=== PATIENT | female | born 1980 | race Caucasian/White ===

== ENCOUNTER → 2024-08-23 | Outpatient (REF) | payer OTHER ==
[~2024-08-23] MED LIST: GADOBENATE DIMEGLUMINE 0 ML IV ONE
== END ==
LOC: MRI 08:58
PROVIDERS: ATTEND Nurse Practitioner Family
DX: M54.16 Radiculopathy, lumbar region (principal); M51.06 Intervertebral disc disorders with myelopathy, lumbar region